=== PATIENT | female | born 1945 | race African-American/Black ===

== ENCOUNTER 2020-12-31 21:54 | Inpatient (IN) ==
[2020-12-31 23:01] LABS: ABS Eosinophils 0.1 10^3/ul (0-0.6); ABS Lymphocytes 1.5 10^3/ul (1.0-4.8); ABS Monocytes 0.9 10^3/ul (0-0.8); ABS Neutrophils 4.5 10^3/ul (1.5-7.7); Eosinophil % 1.6 %; Hematocrit 37 % (35-47); Hemoglobin 12.8 g/dL (12.0-16.0); Lymphocyte % 21.5 %; Mean Corpuscular HGB Conc 34 g/dL (31-36); Mean Corpuscular Hemoglobin 29 pg (27-31); Mean Corpuscular Volume 85 fL (80-97); Mean Platelet Volume 6.6 fL (7.4-10.4); Platelet Count 236 10^3/uL (150-450); Red Blood Count 4.39 10^6 /uL (3.70-4.87); Red Cell Distribution Width 14 % (10-15); White Blood Count 7.1 10^3/uL (3.5-10.8)
[2020-12-31 23:14] LABS: ALT 82 U/L (7-52); AST 108 U/L (13-39); Albumin 3.8 g/dL (3.2-5.2); Albumin/Globulin Ratio 1.4 (1-3); Alkaline Phosphatase 50 U/L (35-149); Anion Gap 6 mmol/L (2-11); Blood Urea Nitrogen 25 mg/dL (6-24); CO2 Carbon Dioxide 29 mmol/L (22-32); Calcium 9.4 mg/dL (8.6-10.3); Chloride 102 mmol/L (101-111); Globulin 2.8 g/dL (2-4); Glucose 115 mg/dL (70-100); Potassium 3.8 mmol/L (3.5-5.0); Sodium 137 mmol/L (135-145); Total Protein 6.6 g/dL (6.4-8.9)
[2020-12-31 23:46] LABS: Alcohol, S < 13 mg/dL (<13); Salicylate < 2.50 mg/dL (<30)
[2020-12-31 23:47] LABS: Acetaminophen < 15 mcg/mL
[2021-01-01 08:33] LABS: Urine Appearance Cloudy; Urine Bilirubin Negative (Negative); Urine Blood Negative (Negative); Urine Color Amber; Urine Glucose Negative (Negative); Urine Ketones 1+ (Negative); Urine Nitrite Negative (Negative); Urine Protein 1+(30 mg/dL) (Negative); Urine Specific Gravity 1.029 (1.002-1.030); Urine Urobilinogen Negative (Negative)
[2021-01-01 08:49] LABS: Urine Bacteria Absent (Absent); Urine Red Blood Cell Absent (Absent); Urine Squamous Epithelial Cell Present (Absent); Urine White Blood Cell Trace(0-5/hpf) (Absent)
[2021-01-01 08:50] LABS: Urine Benzodiazepine Screen None Detected (None Detect); Urine Cannabinoids Screen None Detected (None Detect); Urine Opiates Screen None Detected (None Detect)
[2021-01-01] MEDS ORDERED: Al Hydrox/Mg Hydrox/Simet LIQ 30 ML UDC PO PRN (10:52)
[2021-01-01 11:08] LABS: Rapid COVID-19 Molecular Undetected (Undetected)
[2021-01-02 07:45] LABS: HDL Cholesterol 50.9 mg/dL
[2021-01-08 09:59] VITALS: BP 139/79
== END 2021-01-08 16:45 | disposition home or self-care (01) | DRG 885 ==
LOC: ED 21:54 → BSU 01-01 10:52
PROVIDERS: ADMIT Psychiatry & Neurology Psychiatry; ATTEND Psychiatry & Neurology Psychiatry

== ENCOUNTER 2024-03-09 17:09 | Observation (INO) ==
[2024-03-09] MEDS: Iodixanol 320 (CONTRAST) 100 ML SDV IV ONE (17:29)
[2024-03-09 17:34] LABS: ABS Lymphocytes 0.8 10^3/uL (1.0-4.8); ABS Monocytes 0.3 10^3/uL (0.0-0.9); ABS Neutrophils 4.4 10^3/uL (1.5-7.6); ABS Nucleated RBC 0.01 10^3/ul; Eosinophil % 0.1 %; Hematocrit 42.7 % (35-45); Hemoglobin 14.1 g/dL (11.5-14.3); Lymphocyte % 14.5 %; Mean Corpuscular Hemoglobin 27.7 pg (27-33); Mean Corpuscular Hgb Conc 32.9 g/dL (31-36); Mean Platelet Volume 6.7 fL (7.5-11.2); Nucleated Red Blood Cells % 0.2 %/100WBC (0.0-0.8); Platelet Count 212 10^3/uL (150-450); Red Blood Count 5.08 10^6/uL (3.63-4.92); White Blood Count 5.5 10^3/uL (3.8-11.8)
[2024-03-09 17:42] LABS: Activated Partial Thrombo Time 42.3 seconds (26.0-38.0); INR 0.91 (0.85-1.14)
[2024-03-09 18:31] LABS: High Sens Troponin Baseline 4 pg/mL (<15)
[2024-03-09 18:36] LABS: ALT 116 U/L (7-52); Albumin 3.9 g/dL (3.5-5.7); Albumin/Globulin Ratio 1.4 (1-3); Alkaline Phosphatase 147 U/L (35-149); Anion Gap 9 mmol/L (2-16); Blood Urea Nitrogen 11 mg/dL (6-24); CO2 Carbon Dioxide 26 mmol/L (22-32); Calcium 9.1 mg/dL (8.6-10.3); Chloride 101 mmol/L (101-111); Cholesterol 160 mg/dL; Creatinine, Serum 0.48 mg/dL (0.51-0.95); Globulin 2.7 g/dL (2-4); Glucose 152 mg/dL (70-100); LDL Cholesterol 63 mg/dL; Sodium 136 mmol/L (135-145); Total Bilirubin 0.5 mg/dL (0.2-1.0); Total Protein 6.6 g/dL (6.4-8.9); Triglycerides 59 mg/dL; eGFR CKD-EPI 97.5 (>60)
[2024-03-09] MEDS: Lactated Ringers 1000 ml BAG IV.FLUID IV ONE (18:55)
[2024-03-09 19:24] LABS: Direct Bilirubin Redraw 0.1 mg/dL (0.1-0.5); Potassium Redraw 3.5 mmol/L (3.5-5.0)
[2024-03-09 20:07] LABS: Vitamin B12 339 pg/mL (180-914)
[2024-03-09 23:53] LABS: Urine Appearance Clear; Urine Bacteria Absent /HPF (Absent); Urine Bilirubin Negative (Negative); Urine Blood Trace (Negative); Urine Color Light-Yellow; Urine Glucose 1+ (>=70 mg/dL) (Negative); Urine Ketones Trace (Negative); Urine Nitrite Negative (Negative); Urine Protein 1+ (>=30 mg/dL) (Negative); Urine Red Blood Cell Trace(0-2/hpf) /HPF (0-Trace); Urine Specific Gravity >1.050 (1.002-1.030); Urine Squamous Epithelial Cell Present /HPF (Absent); Urine Urobilinogen Negative (Negative); Urine White Blood Cell Absent /HPF (0-Trace); Urine pH 6.5 (5.0-8.0)
[2024-03-10 00:52] LABS: HDL Cholesterol 69.6 mg/dL
[2024-03-10] MEDS: Lactated Ringers 1000 ml BAG 1,000 ML IV SCH (01:50)
[2024-03-10 07:03] LABS: ABS Lymphocytes 0.9 10^3/uL (1.0-4.8); ABS Monocytes 0.9 10^3/uL (0.0-0.9); ABS Neutrophils 5.3 10^3/uL (1.5-7.6); Eosinophil % 0.3 %; Hematocrit 33.7 % (35-45); Hemoglobin 11.6 g/dL (11.5-14.3); Lymphocyte % 13.1 %; Mean Corpuscular Hemoglobin 28.7 pg (27-33); Mean Corpuscular Hgb Conc 34.5 g/dL (31-36); Mean Corpuscular Volume 83.2 fL (80-97); Mean Platelet Volume 6.8 fL (7.5-11.2); Nucleated Red Blood Cells % 0.1 %/100WBC (0.0-0.8); Platelet Count 208 10^3/uL (150-450); Red Blood Count 4.05 10^6/uL (3.63-4.92); Red Cell Distribution Width 13.9 % (12-17); White Blood Count 7.2 10^3/uL (3.8-11.8)
[2024-03-10 07:47] LABS: Calcium 8.3 mg/dL (8.6-10.3); Creatinine, Serum 0.92 mg/dL (0.51-0.95); Magnesium 1.5 mg/dL (1.9-2.7); Potassium 4.3 mmol/L (3.5-5.0); eGFR CKD-EPI 64.1 (>60)
[2024-03-10 08:08] LABS: Phosphorus 3.3 mg/dL (2.5-5.0)
[2024-03-10] MEDS ORDERED: Sulfur Hexaflouride MICROSPHR 25 MG VIAL IV PRN (09:13)
[2024-03-10] MEDS ORDERED: Dextrose 50% VIAL 50 ml IV PRN (11:31)
[2024-03-10] MEDS: Magnesium Sulf 4 GM/100 ML IV 4,000 MG/100 ML BAG IVPB ONE (12:13)
[2024-03-10] MEDS ORDERED: Dextrose 50% Syringe 50 ml 25 GM/50 ML SYRINGE IV PUSH PRN (13:14)
[2024-03-10] MEDS: Enoxaparin 40 MG/0.4 ML SYR SUBCUT SCH (17:17)
[2024-03-10 18:21] VITALS: BP 106/65
== END 2024-03-10 18:40 | disposition home or self-care (01) ==
LOC: ED 17:09 → EDHOLD 17:09 → SUATTDRO 20:44 → MEDTELE 03-10 12:00
PROVIDERS: ADMIT Internal Medicine; ATTEND Student in an Organized Health Care Education/Training Program